=== PATIENT | male | born 1985 | race Caucasian/White ===

== ENCOUNTER → 2019-06-23 12:30 | Outpatient (BNVA) | payer SELFPAY | PROVIDERS: Family Provider Internal Medicine; Visit Provider Family Medicine | DX: B18.2 Chronic viral hepatitis C (principal); K57.92 Diverticulitis of intestine, part unspecified, without perforation or abscess without bleeding; F41.9 Anxiety disorder, unspecified | CPT/HCPCS: 80053; 85025; 87522; 87902 ==

== ENCOUNTER 2019-07-30 14:02 | Outpatient (CLI) | payer SELFPAY ==
--- NOTE | 2019-07-30 15:00 | US_ITS ---
WS: [id number] ULTRASOUND ABDOMEN LIMITED CLINICAL INFORMATION: h COMPARISON: CT September 09, 2018 and ultrasound June 17, 2017 FINDINGS: Liver Size: Hepatomegaly Craniocaudal length: 19.4 cm. Echogenicity: Coarse echogenicity consistent with hepatocellular disease. Surface nodularity: None. Mass (size and location): 2 echogenic lesions likely represent cavernous hemangiomas measuring 1.4 x 1.0 and 1.7 x 1.0 cm. Bile ducts Intrahepatic ducts: Normal. Common bile duct diameter: 0.6 cm. Gallbladder Normal. Gallstones: None. Gallbladder sludge: None. Gallbladder wall thickening: None. Pericholecystic fluid: None. Sonographic Pike sign: Absent. Pancreas Normal as visualized. Right kidney: Normal. Hydronephrosis: None. Size: 11.0 cm x 5.2 cm x 5.1 cm. Abdominal aorta and IVC Visualized portions are normal. Ascites: None. US/US liver [id number] IMPRESSION: 1. Hepatomegaly with coarse echogenicity likely due to diffuse hepatocellular disease. 2. Gallbladder and common bile duct are normal. 3. No hydronephrosis in right kidney. 4. 2. Small echogenic lesions in the right hepatic lobe most consistent with c avernous hemangiomas. These appear unchanged since the CT September 2018
== END 2019-07-30 14:03 | disposition home or self-care (01) ==
LOC: RAD 14:04
PROVIDERS: Family Provider Internal Medicine; Visit Provider Internal Medicine
DX: R76.8 Other specified abnormal immunological findings in serum (principal); B18.2 Chronic viral hepatitis C; R16.0 Hepatomegaly, not elsewhere classified
CPT/HCPCS: 76705

== ENCOUNTER 2019-09-17 14:23 | Outpatient (CLI) | payer SELFPAY ==
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
== END 2019-09-17 14:24 | disposition home or self-care (01) ==
LOC: RAD 14:28
PROVIDERS: PCP Internal Medicine; Visit Provider Registered Nurse
DX: S69.91XA Unspecified injury of right wrist, hand and finger(s), initial encounter (principal); X58.XXXA Exposure to other specified factors, initial encounter; M25.431 Effusion, right wrist
CPT/HCPCS: 73100

== ENCOUNTER → 2019-11-25 16:10 | Outpatient (BNVA) | payer SELFPAY | PROVIDERS: PCP Internal Medicine; Visit Provider Internal Medicine | DX: B18.2 Chronic viral hepatitis C (principal) | CPT/HCPCS: 87522 ==

== ENCOUNTER 2020-01-26 20:48 | Emergency (ER) | payer SELFPAY ==
--- NOTE | 2020-01-26 20:51 | XR_ITS ---
WS: [id number] Right hand, 3 views, 01/26/2020 Clinical Data: injury Comparison: None. Findings: No new fractures or dislocations are seen. The soft tissues are unremarkable. The joint s paces are normal There is a flexion deformity at the right fifth PIP joint. There is a healed fracture of the right [facility] metacarpal XR/XR hand RT min 3V* [id number] Impression: Negative for new fractures of the right hand.
[2020-01-26 20:58] VITALS: BP 144/83; PULSE 81; RESP 18; TEMP 36.5; O2SAT 99; BMI 20.6
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
[2020-01-26] MEDS: HYDROcodone-acetaminophen 5-325 mg Tablet 2 TAB PO (22:40)
[2020-01-26] MEDS: cephALEXin 500 mg Capsule PO (22:40)
[2020-01-26 22:42] VITALS: BP 133/95; PULSE 77; RESP 16; O2SAT 98
[2020-01-26 22:44] VITALS: BP 122/94; PULSE 81; RESP 16; O2SAT 97
== END 2020-01-26 22:48 | disposition home or self-care (01) ==
PROVIDERS: Emergency Provider Nurse Practitioner Family; PCP Internal Medicine
DX: S61.200A Unspecified open wound of right index finger without damage to nail, initial encounter (principal); W22.8XXA Striking against or struck by other objects, initial encounter; F17.210 Nicotine dependence, cigarettes, uncomplicated
CPT/HCPCS: 12345; 73130; 99281; 99283

== ENCOUNTER 2020-06-29 10:34 | Emergency (ER) | payer SELFPAY ==
[2020-06-29 11:05] VITALS: BP 144/89; PULSE 80; RESP 15; TEMP 36.5; O2SAT 99; BMI 20.1
--- NOTE | 2020-06-29 11:37 | ED_ITS ---
HPI - Extremity Problem General: Chief complaint: Extremity Problem,Nontraumatic Stated complaint: Lt shoulder pain Time Seen by Provider: 06/29/20 11:09 Source: patient and family Mode of arrival: ambulatory Limitations: no limitations History of Present Illness: HPI Narrative: Patient is a nice 34-year-old male who presents to ED today with a complaint of left arm pain and numbness. 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 He states he has noticed over the last few days his shoulder has worsened more so than his baseline. He is complaining of numbness and tingling down his entire left arm. He states paresthesias are worse when he lies on his left shoulder. He does complain of neck pain. He not had any recent injury or trauma. He has not noticed any color or temperature changes to the extremity. MD Complaint: extremity pain and other (paresthesias) Onset (ago): day(s) Pain Consistency: constant Location: left and upper extremity Quality: burning Radiation: distal Relieving factors: immobilization Exacerbating factors: range of motion Associated symptoms: Reports no associated symptoms; Deny chest pain, fever(s) or rash Review of Systems Const: Denies: fever(s) Card: Denies: chest pain or palpitations Resp: Denies: dyspnea Musc: Reports: neck pain, joint pain and limited range of motion; Denies: back pain, extremity swelling, joint swelling or muscle weakness Skin/Breast: Denies: rash, skin pain or changes in skin color PFSH ED PFSH: Family History Grandmother Cancer Diabetes Mother Lung disease Brother Suicide Social History Smoking and tobacco status: current every day smoker cigarettes Packs smoked per day: 1 Years cigarettes smoked: 12 Second hand smoke exposure: Yes Alcohol intake: former Year of sobriety/quit date alcohol: 3 ye Desire information about substance/drug rehabilitation?: No Counseling given: No Household members: spouse Housing: House Marital status: Number of children: 3 Highest education level completed: 9th Grade service: No 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 Current occupational exposures/hazards: No Physical Exam Const: COMMON NORMALS: no acute distress, patient oriented x3, no limitations and alert GENERAL APPEARANCE: cooperative ORIENTATION/CONSCIOUSNESS: Yes awake, Yes oriented to person, Yes oriented to place and Yes oriented to time HENMT: COMMON NORMALS: normocephalic and atraumatic HEAD & SCALP: normocephalic Neck/C-Spine: COMMON NORMALS: full ROM, no lymphadenopathy and no meningeal signs CERVICAL SPINE: Yes Cervical spine tenderness (mid to lower c spine), Yes Paracervical muscle tenderness and Yes Trapezius muscle tenderness Chest: COMMONS NORMALS: normal inspection of the chest and normal palpation of entire chest wall Resp: COMMON NORMALS: normal respiratory effort Extremity: COMMON NORMALS: normal to inspection LEFT UPPER EXTREMITY: Yes shoulder joint Left shoulder joint: Yes palpation (TTP over scapular musculature), Yes ROM (pain past 90 deg flexion/abduction; normal IR/ER) and Yes neurovascular exam (normal) Neuro: COMMON NORMALS: patient oriented x3 SENSORIUM/ORIENTATION: Yes alert, Yes oriented to person, Yes oriented to place and Yes oriented to time MENINGEAL SIGNS: Yes no meningeal signs SENSORY EXAM: Yes other (reports decreased sensation when compared to R throughout L UE) MOTOR EXAM: 5/5 motor strength present throughout Course Vital Signs: Vital signs: Vital Signs Temperature 97.7 F 06/29/20 11:05 Pulse Rate 80 06/29/20 11:05 Respiratory Rate 15 06/29/20 11:05 Blood Pressure 144/89 06/29/20 11:05 Pulse Oximetry 99 06/29/20 11:05 MDM - Extremity (Nontraumatic) MDM Narrative: Medical decision making narrative: Patient has an appointment with primary care tomorrow. I do not feel there is any need for emergent XR or CT imaging today. Patient will be treated with anti-inflammatory medication, steroids, and gabapentin. Return to ED precautions given. Discharge Plan Discharge Patient Disposition: Home Clinical Impression: Cervical radiculopathy, acute Condition: Stable Prescriptions: New ibuprofen 800 mg tablet 800 mg PO Q8H PRN (Reason: pain) Qty: 20 RF: 0 Medrol (Az) 4 mg tablets,dose pack See Rx Instructions .ROUTE .COMPLEX Qty: 21 RF: 0 gabapentin 300 mg capsule 300 mg PO DAILY Qty: 60 RF: 0 No Action sofosbuvir-velpatasvir [Epclusa] 400-100 mg tablet 1 tab PO DAILY 84 Days Qty: 28 RF: 2 hydrocodone-acetaminophen 5-325 mg tablet 1 tab PO Q6H PRN (Reason: pain) Qty: 10 RF: 0 Discharge Orders: Discharge ED (Routine); Ordered 06/29/20 Ordered By: Jeri Ortiz Referrals: Nataliya Mojica DO [Referring] - Patient Instructions: Cervical Disc Herniation (ED), Cervical Radiculopathy (ED) Activity Restrictions/Additional Instructions: Please keep your primary care appointment for tomorrow for further management. Coding Level of Care Code ED Repair Cameraman for Seun Alfonso
[2020-06-29] MEDS: ketorolac 60 mg/2 mL INJ IM (12:13)
[2020-06-29] MEDS: dexamethasone 10 mg/mL INJ 8 MG IM (12:13)
== END 2020-06-29 12:19 | disposition home or self-care (01) ==
PROVIDERS: Emergency Provider Physician Assistant; PCP Internal Medicine
DX: M54.12 Radiculopathy, cervical region (principal); F17.210 Nicotine dependence, cigarettes, uncomplicated
CPT/HCPCS: 99283; J1100; J1885

== ENCOUNTER 2020-07-01 09:34 | Outpatient (CLI) | payer SELFPAY ==
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
--- NOTE | 2020-07-01 10:09 | XRR_ITS ---
PROCEDURE INFORMATION: Exam: XR Cervical Spine Exam date and time: 07/01/2020 10:10 AM Age: 34 years old Clinical indication: Neck pain; Additional info: Cervical pain TECHNIQUE: Imaging protocol: XR of the cervical spine. Views: 2 or 3 views. COMPARISON: CT Cervical Spine wo* [id number] 09/06/2015 12:16 PM FINDINGS: Bones/joints: No fracture or other acute abnormalities are seen. Chronic degenerative disease is present especially at the C5-C6 level with joint space narrowing sclerosis and osteophytes. There is no significant malalignment. Soft tissues: Unremarkable. XR/XR cervical spine 3V* [id number] IMPRESSION: 1. No acute abnormality. 2. 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
== END 2020-07-01 09:35 | disposition home or self-care (01) ==
LOC: RAD 09:36
PROVIDERS: PCP Internal Medicine; Visit Provider Registered Nurse
DX: M25.512 Pain in left shoulder (principal); Z18.10 Retained metal fragments, unspecified
CPT/HCPCS: 72040; 73030

== ENCOUNTER 2020-07-12 07:49 | Outpatient (CLI) | payer SELFPAY ==
--- NOTE | 2020-07-12 08:11 | CT_ITS ---
WS: [id number] CT CERVICAL SPINE HISTORY: CERVICAL PAIN, NEUROPATHY, ACUTE LEFT SHOULDER PAIN TECHNIQUE: Contiguous 2.5 mm axial imaging performed through the entire cervical spine. Sagittal and coronal reformats also performed. All CT scans at [facility] use at least one of these do se optimization techniques: automated exposure control; mA and/or kV adjustment per patient size (inc ludes targeted exams where dose is matched to clinical indication); or iterative reconstruction. DLP: 1464.66 mGycm COMPARISON: 09/06/2015 Mild straightening of the normal cervical lordosis. Very mild anterior wedging of C4, C5 and C6 is st able. Small endplate osteophytes at C4, C5 and C6. Facet joints are normally aligned. Craniocervical junction is normal. Lateral masses of C1 and C2 align. C2-C3: Normal. C3-C4: Normal. C4-C5: Normal. C5-C6: Mild diffuse osteophytic ridging. Mild encroachment upon the ventral thecal sac with mild LEFT foraminal stenosis. C6-C7: Normal. C7-T1: Normal. Soft tissues are normal. Lung apices are clear. CT/CT cervical spin wo con* [id number] IMPRESSION: 1. Mild central and LEFT foraminal stenosis at C5-C6 predominantly due to oste ophytic ridging. 2. Stable mild anterior wedging of C4, C5 and C6.
== END 2020-07-12 07:50 | disposition home or self-care (01) ==
LOC: RADWPI 08:04
PROVIDERS: PCP Internal Medicine; Visit Provider Registered Nurse
DX: G62.9 Polyneuropathy, unspecified (principal); M25.512 Pain in left shoulder; M48.02 Spinal stenosis, cervical region; M48.52XA Collapsed vertebra, not elsewhere classified, cervical region, initial encounter for fracture
CPT/HCPCS: 72125

== ENCOUNTER → 2022-12-18 14:26 | Outpatient (BNVA) | payer SELFPAY | PROVIDERS: PCP Internal Medicine; Visit Provider Nurse Practitioner Family | DX: R30.0 Dysuria (principal); K62.5 Hemorrhage of anus and rectum; Z20.2 Contact with and (suspected) exposure to infections with a predominantly sexual mode of transmission | CPT/HCPCS: 81000; 87491; 87591 ==